=== PATIENT | female | born 1960 | race Caucasian/White ===

== ENCOUNTER 2021-03-11 06:00 | Day surgery (SDC) | payer OTHER, MEDICAID, SELFPAY ==
[~2021-03-11] VITALS: Ht 167.6 cm; Wt 77.1 kg
[2021-03-11] MEDS ORDERED: ROCURONIUM BROMIDE 10 MG/ML (ZEMURON) IV ONE (07:37)
[2021-03-11] MEDS ORDERED: PROPOFOL 200MG/ 20ML VIAL (DIPRIVAN) IV ONE (07:37)
[2021-03-11] MEDS ORDERED: EPINEPHrine 1 MG/ML AMP IM ONE (07:37)
[2021-03-11] MEDS ORDERED: LIDOCAINE 2%, 20 ML MDV INJ ONE (07:37)
[2021-03-11] MEDS ORDERED: MUPIROCIN 2% TOPICAL OINTMENT 22 GM TP ONE (07:37)
[2021-03-11] MEDS ORDERED: SUGAMMADEX SODIUM 200 MG/2 ML VIAL IV ONE (07:37)
[2021-03-11] MEDS ORDERED: MIDAZOLAM HCL 5 MG/5 ML VIAL IVP ONE (07:37)
[2021-03-11] MEDS ORDERED: NS IRRIG SOLN 1000 ML IR ONE (07:37)
[2021-03-11] MEDS ORDERED: ONDANSETRON HCL 4 MG/2 ML VIAL IVP ONE (07:37)
[2021-03-11] MEDS ORDERED: DEXAMETHASONE SOD PHOSPHATE 4 MG/ML VIAL IVP ONE (07:37)
[2021-03-11] MEDS ORDERED: OXYMETAZOLINE HCL 0.05% NASAL SPRAY NS ONE (07:37)
[2021-03-11] MEDS ORDERED: LIDOCAINE/EPI 1% 1:100000 20 ML VIAL INJ ONE (07:37)
[2021-03-11] MEDS ORDERED: fentaNYL CITRATE 250 MCG/5 ML AMP IV ONE (07:37)
[2021-03-11] MEDS ORDERED: LR 1,000 ML IV.SOLN IV ONE (07:37)
[2021-03-11] MEDS ORDERED: DESFLURANE 15 MIN GAS INH ONE (07:37)
[2021-03-11] MEDS ORDERED: ONDANSETRON HCL 4 MG/2 ML VIAL IVP PRN (08:30)
[2021-03-11] MEDS ORDERED: LABETALOL 100 MG/ 20ML VIAL IVP PRN (08:30)
[2021-03-11] MEDS ORDERED: MIDAZOLAM HCL 2 MG/2 ML VIAL (VERSED) IVP PRN (08:30)
[2021-03-11] MEDS ORDERED: hydrALAZINE HCL 20 MG/ML VIAL IVP PRN (08:30)
[2021-03-11] MEDS ORDERED: MEPERIDINE HCL/PF 25 MG/ML DISP.SYRIN IVP PRN (08:30)
[2021-03-11] MEDS ORDERED: METOCLOPRAMIDE HCL 10 MG/2 ML VIAL IVP PRN (08:30)
[2021-03-11] MEDS ORDERED: LR 1,000 ML IV SCH (08:30)
[2021-03-11] MEDS ORDERED: HYDROmorphone 1 MG/ML INJ. CARTRIDGE IVP PRN (08:30)
[2021-03-11] MEDS ORDERED: ACETAMINOPHEN I.V. 1000 MG 100 ML IV ONE (08:46)
[2021-03-11] MEDS: HYDROmorphone 1 MG/ML INJ. CARTRIDGE IVP PRN ×2 (11:22→11:27)
[2021-03-11] MEDS ORDERED: HYDROmorphone 1 MG/ML INJ. CARTRIDGE ONE ×2 (11:22→11:49)
[2021-03-11 13:38] VITALS: BP_SYST 129
[2021-03-12] MEDS ORDERED: DIAZ5SOL PO (23:08)
[2021-03-12] MEDS ORDERED: PRELO PO (23:11)
== END 2021-03-11 14:05 | disposition home or self-care (01) ==
LOC: SMU 06:00 → SDS 06:00
PROVIDERS: ATTEND Otolaryngology
DX: J34.2 Deviated nasal septum (principal); D38.5 Neoplasm of uncertain behavior of other respiratory organs; J32.4 Chronic pansinusitis; J34.89 Other specified disorders of nose and nasal sinuses; F32.9 Major depressive disorder, single episode, unspecified; Z20.822 Contact with and (suspected) exposure to COVID-19; Z79.899 Other long term (current) drug therapy
CPT/HCPCS: 30140; 30520; 31255; 31256; 31296; 87070 ×2; 87075; 87101; 88304; 88311; C1726; C9399; J0131; J0171; J1100; J1170; J2001; J2250; J2405; J2704; J3010; J7120; U0003

== ENCOUNTER 2021-03-12 21:59 | Emergency (ER) | payer OTHER, MEDICAID, SELFPAY ==
[~2021-03-12] VITALS: Ht 167.6 cm; Wt 77.1 kg
[2021-03-12 22:04] VITALS: BP_SYST 155
--- NOTE | 2021-03-12 22:31 | NUR ---
Patient to ER bed 04 to gown for evaluation. Side rails up.
--- NOTE | 2021-03-12 22:34 | NUR ---
Patient BIB by family from home. C/O post surgical complication x today. Per patient reported, patient had congestion, nose bleeding after had sinus surgery on 03/11/21. A/O,X4, congestion, no pain, vss.
--- NOTE | 2021-03-12 22:56 | NUR ---
ER at bedside examining patient.
[2021-03-12] MEDS ORDERED: LORazepam 2 MG/ML VIAL IM ONE (23:00)
[2021-03-12] MEDS ORDERED: DIAZ5SOL PO (23:08)
--- NOTE | 2021-03-12 23:09 | NUR ---
2x2 GAUZE APPLIED EXTERNALLY TO NASAL NARES AND SECURED WITH PAPER TAPE.
[2021-03-12] MEDS ORDERED: PRELO PO (23:11)
--- NOTE | 2021-03-12 23:18 | NUR ---
Patient refused to X-ray , Dr. Clemens notified.
--- NOTE | 2021-03-12 23:28 | NUR ---
Patient given written and verbal discharge instructions and verbalizes understanding. ER MD discussed with patient the results and treatment provided. Patient in stable condition. ID arm band removed. Rx of Diazepam and Prelone given. Patient educated on pain management and to follow up with PMD. Pain Scale 0/10. Opportunity for questions provided and answered. Medication side effect fact sheet provided.
== END 2021-03-12 23:28 | disposition home or self-care (01) ==
LOC: SED 21:59
DX: F45.8 Other somatoform disorders (principal); Z88.8 Allergy status to other drugs, medicaments and biological substances; Z79.899 Other long term (current) drug therapy
CPT/HCPCS: 96372; 99283; J2060